=== PATIENT | female | born 1985 | race Two or more races ===

== ENCOUNTER → 2019-02-07 | Outpatient (REF) | payer OTHER ==
[2019-02-07 17:53] LABS: BLOOD UREA NITROGEN 16 MG/DL (7-18); CARBON DIOXIDE LEVEL 26 MEQ/L (21-32); CHLORIDE LEVEL 105 MEQ/L (98-107); GLOMERULAR FILTRATION RATE > 60.0 (>60); GLUCOSE, FASTING 89 MG/DL (70-100); POTASSIUM SERUM 4.4 MEQ/L (3.5-5.1); SODIUM LEVEL 138 MEQ/L (136-145)
[2019-02-07 18:03] LABS: HEMATOCRIT 37.7 % (36.0-47.0); HEMOGLOBIN 12.2 g/dl (12.0-15.5)
[2019-02-07 19:04] LABS: HEMOGLOBIN A1c 6.1 %
== END ==
LOC: M SFHCLERA 14:01
PROVIDERS: ATTEND Family Medicine
DX: E03.9 Hypothyroidism, unspecified (principal); Z13.1 Encounter for screening for diabetes mellitus

== ENCOUNTER → 2019-02-21 | Outpatient (CLI) | payer OTHER ==
--- NOTE | 2019-02-21 10:39 | PFTRPT ---
Height: 66.50 Inches Weight: 180.00 Lbs BSA: 1.92 Diagnosis: J45.909 DATE OF PROCEDURE: 02/21/2019 ORDERED BY: Dr. Rock Shankar Spirometry: Pre and post bronchodilator study of excellent technical quality. Difficulty with effort is identified. Forced vital capacity normal. FEV1 in proportion. Obstructive index is, therefore, normal. Flow volume loop: Expiratory limb of the flow volume loop is normal. No significant bronchodilator response identified. Lung volumes: Total lung capacity normal. Residual volume borderline for air trapping. Diffusing capacity: Diffusing capacity normal. Hemoglobin: No hemoglobin available for correction. Airway mechanics: Airway resistance and conductance are normal. IMPRESSION: Probably normal study. MTDD
== END ==
LOC: M CARPUL 09:56
PROVIDERS: ATTEND Family Medicine
DX: J45.909 Unspecified asthma, uncomplicated (principal)

== ENCOUNTER → 2019-05-22 | Outpatient (CLI) | payer OTHER ==
[~2019-05-22] MED LIST: METHACHOLINE KIT (J7674) INH ONE
--- NOTE | 2019-05-22 10:48 | REP ---
Clinical: Cough . Comparison: None . Technique: PA and lateral. Findings: The mediastinum and cardiac silhouette are normal. The lung joaquin are clear and without acute consolidation, effusion, or pneumothorax. The skeletal structures are intact and normal. Impression: 1. No acute cardiopulmonary process. Electronically Signed by Jose L Ramos MD 05/22/2019 10:40 A
== END ==
LOC: M CARPUL 09:42
PROVIDERS: ATTEND Physician Assistant
DX: R05 Cough (principal)

== ENCOUNTER → 2019-06-14 | Outpatient (CLI) | payer OTHER ==
--- NOTE | 2019-06-14 10:45 | PFTRPT ---
Height: 66.50 Inches Weight: 180.00 Lbs BSA: 1.92 Diagnosis: R05 DATE OF PROCEDURE: 06/14/2019 ORDERED BY: Jose L Wisdom PA-C INTERPRETATION: Study of excellent technical quality. Study somewhat limited by cough. Under protocol, methacholine was administered. At a dose of 2.5 mg or 13.875 CDUs, a 21% decline in the FEV1 was noted. PC of 1.90 was significant. Flow rates did return to baseline post bronchodilator administration. IMPRESSION: Positive methacholine challenge study. MTDD
== END ==
LOC: M CARPUL 09:40
PROVIDERS: ATTEND Physician Assistant
DX: R05 Cough (principal); Z88.2 Allergy status to sulfonamides
CPT/HCPCS: 94070; J7674

== ENCOUNTER → 2019-12-25 | Outpatient (REF) | payer OTHER ==
[2019-12-25 13:41] LABS: HEMOGLOBIN 13.8 g/dl (12.0-15.5); MEAN CORPUSCULAR HEMOGLOBIN 29.7 pg (27.0-33.0); MEAN CORPUSCULAR HGB CONC 32.1 g/dl (32.0-36.5); MEAN CORPUSCULAR VOLUME 92.5 fl (80.0-96.0); PLATELET COUNT, AUTOMATED 381 10^3/uL (150-450); RED BLOOD COUNT 4.65 10^6/uL (4.00-5.40); WHITE BLOOD COUNT 17.2 10^3/uL (4.0-10.0)
[2019-12-25 15:50] LABS: CHLAMYDIA DNA AMPLIFICATION NEGATIVE (NEGATIVE); GC DNA AMPLIFICATION NEGATIVE (NEGATIVE)
[2019-12-26 09:16] LABS: HEPATITIS C VIRUS ABY INDEX 0.1 INDEX (<0.8); HIV 1&2 SCREEN CENTAUR NEGATIVE (NEGATIVE)
== END ==
LOC: M PLALAB 10:54
PROVIDERS: ATTEND Advanced Practice Midwife
DX: O09.523 Supervision of elderly multigravida, third trimester (principal)

== ENCOUNTER 2020-07-17 05:00 | Inpatient (IN) | payer OTHER ==
[2020-07-17] VITALS (8 sets, daily range): BP systolic 115–142; BP diastolic 62–88
[~2020-07-17] VITALS: Ht 170.2 cm; Wt 94.8 kg
[~2020-07-17 05:00] MED LIST changes: +ADV500INH INH; +CETI10CH PO; +FLUT15.819; -METHACHOLINE KIT (J7674) INH ONE; +MONT10TA10 PO; +OMEP1CAP73 PO; +ONDA-83 PO; +PRENTAB53 PO; +PROAAER10 INH; +SYNT100T PO
--- OUTSIDE RECORDS SUMMARY | 2020-07-17 05:06 | CCD | Continuity of Care Document ---
Author Author Gavi WEN D.O. [place] [address] Phone [phone] Care Team Providers Care Dietary Internship Name Role Phone Bette Mota N.P. Unavailable Problems Active Problems Provider Date Gastroesophageal reflux disease Davide Wen D.O. Onset: 1 Allergic rhinitis Davide Wen D.O. Onset: 04/14/2020 Mild intermittent asthma HEATHER Paz Onset: 07/17/19 20 Difficulty breathing HEATHER Paz Onset: 05/08/2019 Cough HEATHER Paz Onset: 05/08/2019 Social History Type Date Description Comments Sex Unknown Tobacco Use Reviewed: 03/07/20 Patient has never smoked Smoking Status Reviewed: 07/03/20 Patient has never smoked Allergies, Adverse Reactions, Alerts Active Allergies Reaction Severity Comments Date Sulfa 05/08/2019 Medications Active Medications SIG Qnty Indications Ordering Provide r Date Fluticasone Propionate 50mcg/Act Suspension instill 2 sprays in each nostril daily 16gm J45.20 Sandra Wen D.O. 04/14/2020 Advair Diskus 500-50mcg/Dose Aeros ol 1 puff twice a day 60units Davide Wen D.O. 07/17/2019 Synthroid 100mcg Tablets 1 by mouth every day Unknown Cetirizine HCL 1 tab by mouth every day Unknown Montelukast Sodium 10mg Tablets 1 tab by mouth every day Unknown Albuterol Sulfate HFA 108(90Base) mcg/Act Aerosol inhale two puffs by mouth four times a day as needed Unknown Omeprazole 20mg Capsules DR 1 by mouth every day 30caps Unknown Vitamin Tablets 1 tab by mouth every day 1bottle Unknown Vitamin B-6 1 tab by mouth every day Unknown Immunizations CPT Code Status Date Vaccine Lot # 55077 Given 07/03/2020 Afluria, Quadrivalent, 0.5ml , [facility]# 48904-028-68 [id number] Vital Signs Date Vital Result Comment 07/03/2020 11:14am BP Systolic 118 mmHg BP Diastolic 70 mmHg Heart Rate 98 /min O2 % BldC Oximetry 100 % Body Temperature 96.7 F Height 66 inches 5'6" Weight 208.25 lb BMI (Body Mass Index) 33.6 kg/m2 [place] Body Weight 130 lb Weight 94.462 kg BSA (Body Surface Area) 2.03 m2 04/14/2020 9:49am BP Systolic 130 mmHg BP Diastolic 70 mmHg Heart Rate 97 /min O2 % BldC Oximetry 99 % Body Temperature 97.1 F Height 66 inches 5'6" Weight 204.00 lb BMI (Body Mass Index) 32.9 kg/m2 [place] Body Weight 130 lb Weight 92.534 kg BSA (Body Surface Area) 2.02 m2 Results Test Acquired Date Facility Test Result H/L Range Note FVL/Angel 07/03/2020 [facility] PD[facility]eport SEE IMAGE FVC-Pred 3.99 L FVC-Pre 3.07 L FVC-%Pred-Pre 77 L FVC-LLN 3.25 L Fev1-Pred 3.28 L Fev1-Pre 2.60 L Fev1-%Pred-Pre 79 L Fev1-LLN 2.66 L Fev6-Pred 3.93 L Fev6-Pre 3.07 L Fev6-%Pred-Pre 78 L Fev6-LLN 3.20 L Gjq1ook-Ybcn 83 % Mjf7omz-Vaw 85 % Qbz3xvk-%Pred-Pre 101 % Gel2mce-VCE 73 % Qee5qnx-Hxoh 99 % Ibg5ypo-Tfd 100 % Vzv1fin-%Pred-Pre 101 % FEFMax-Pred 7.32 L/E/sec FEFMax-Pre 6.08 L/E/sec FEFMax-%Pred-Pre 83 L/E/sec FEFMax-LLN 5.49 L/E/sec Ufm9261-Amrl 3.38 L/E/sec New3767-Sug 3.34 L/E/sec Vai5026-%Pred-Pre 98 L/E/sec Sip1306-HOP 2.07 L/E/sec ExpTime-Pre 4.64 sec Ced1rox2-Cwvy 84 % Woo2gbs3-Snb 85 % Qzf1ojx6-%Pred-Pre 100 % Jmm5rio1-OMF 76 % FVL/Angel 04/14/2020 [facility] PDFReport SEE IMAGE FVC-Pred 3.99 L FVC-Pre 3.06 L FVC-%Pred-Pre 76 L FVC-LLN 3.25 L Fev1-Pred 3.28 L Fev1-Pre 2.66 L Fev1-%Pred-Pre 81 L Fev1-LLN 2.66 L Fev6-Pred 3.93 L Fev6-Pre 3.06 L Fev6-%Pred-Pre 77 L Fev6-LLN 3.20 L Bdl1teq-Vhaj 83 % Ncm8teu-Bei 87 % Cqa8urw-%Pred-Pre 104 % Sbo7pin-NIT 73 % Weo4rbm-Ucrp 99 % Bzk2wwy-Ihr 100 % Thx1cbr-%Pred-Pre 101 % FEFMax-Pred 7.32 L/E/sec FEFMax-Pre 7.53 L/E/sec FEFMax-%Pred-Pre 102 L/E/sec FEFMax-LLN 5.49 L/E/sec Tmj7785-Rvzp 3.38 L/E/sec Hny0788-Gmu 2.86 L/E/sec Duc5301-%Pred-Pre 84 L/E/sec Jzr9599-PTC 2.07 L/E/sec ExpTime-Pre 2.36 sec Yoi2bxi1-Wviy 84 % Esu1aoc2-Oti 87 % Fjv3gtm8-%Pred-Pre 103 % Vme7prl1-MZA 76 % FVL/[place] 03/07/2020 [facility] PDFReport SEE IMAGE FVC-Pred 3.99 L FVC-Pre 3.04 L FVC-%Pred-Pre 76 L FVC-LLN 3.25 L Fev1-Pred 3.28 L Fev1-Pre 2.61 L Fev1-%Pred-Pre 79 L Fev1-LLN 2.66 L Fev6-Pred 3.93 L Fev6-Pre 3.04 L Fev6-%Pred-Pre 77 L Fev6-LLN 3.20 L Gzb1jav-Facy 83 % Rag8xcs-Ktq 86 % Cip1ywa-%Pred-Pre 103 % Lor6ddl-PZY 73 % Tux2hgb-Wyfn 99 % Yzs2lox-Rzv 100 % Dau3bme-%Pred-Pre 101 % FEFMax-Pred 7.32 L/E/sec FEFMax-Pre 6.76 L/E/sec FEFMax-%Pred-Pre 92 L/E/sec FEFMax-LLN 5.49 L/E/sec Fxx8230-Zmdi 3.38 L/E/sec Rsj4107-Wkp 2.54 L/E/sec Goh7036-%Pred-Pre 75 L/E/sec Vdg7703-QUC 2.07 L/E/sec ExpTime-Pre 3.25 sec Nlu6rdk4-Tdjb 84 % Wkc7ius3-Elo 86 % Vmu7yog4-%Pred-Pre 101 % Jvm8khh8-KTR 76 % Procedures Date Code Description Status 04/14/2020 47099 Spirometry Completed 03/07/2020 18806 Spirometry Completed Medical Devices Description No Information Available Encounters Type Date Location Provider Dx Diagnosis Office Visit 04/14/2020 10:00a [facility] Davide fraga D.O. J45.20 Mild intermittent asthma, uncomplicated J30.9 Allergic rhinitis, unspecifi ed K21.9 Gastro-esophageal reflux dis ease without esophagitis Office Visit 03/07/2020 11:00a [facility] HEATHER Paz J45.21 Mild intermittent asthma with (acute) ex acerbation J45.20 Mild intermittent asthma, un complicated J30.9 Allergic rhinitis, unspecifi ed Assessments Date Code Description Provider 07/03/2020 J45.20 Mild intermittent asthma, uncomp licated HEATHER Paz 04/14/2020 J45.20 Mild intermittent asthma, uncomp licated Davide Wen D.O. 04/14/2020 J30.9 Allergic rhinitis, unspecified R orleticia Wen D.O. 04/14/2020 K21.9 Gastro-esophageal reflux disease without esophagitis Davide Wen D.O. 03/07/2020 J45.21 Mild intermittent asthma with (a cute) exacerbation HEATHER Paz 03/07/2020 J45.20 Mild intermittent asthma, uncomp licated HEATHER Paz 03/07/2020 J30.9 Allergic rhinitis, unspecified M HEATHER Handley Plan of Treatment 07/03/2020 - HEATHER Paz* J45.20 Mild intermittent asthma, uncomplicated * * New Labs:* FVL/Angel, Ordered: 07/03/20 * Follow up:* Follow up in 3-4 months with angel Functional Status Description No Information Available Mental Status Description No Information Available Referrals Refer to Reason for Referral Status Appt Date Khalif Wisdom, R.P.A.-C. [id number] DX Asthma Created [facility] [address] [place], [place] [address] [phone] Khalif Wisdom, R.P.A.-C. [id number] DX Asthma Created [facility] [address] [place], [place] [address] [phone]
--- OUTSIDE RECORDS SUMMARY | 2020-07-17 05:06 | CCD ---
Author Author [facility] Organization [facility] Address Unknown Phone Unavailable Care Team Providers Care Information Security Consultant Name Role Phone MARK, M DENY PA Unavailable Unavailable MARK, M DENY PA Unavailable Unavailable MARK, M DENY PA Unavailable Unavailable MARK, M DENY PA Unavailable Unavailable MARK, M DENY PA Unavailable Unavailable MARK, M DENY PA Unavailable Unavailable MARK, M DENY PA Unavailable Unavailable MARK, M DENY PA Unavailable Unavailable MARK, M DENY PA Unavailable Unavailable MARK, M DENY PA Unavailable Unavailable MARK, M DENY PA Unavailable Unavailable MARK, M DENY PA Unavailable Unavailable MARK, M DENY PA Unavailable Unavailable MARK, M DENY PA Unavailable Unavailable MARK, M DENY PA Unavailable Unavailable MARK, M DENY PA Unavailable Unavailable MARK, M DENY PA Unavailable Unavailable MARK, M DENY PA Unavailable Unavailable MARK, M DENY PA Unavailable Unavailable MARK, M DENY PA Unavailable Unavailable MARK, M DENY PA Unavailable Unavailable MARK, M DENY PA Unavailable Unavailable MARK, M DENY PA Unavailable Unavailable MARK, M DENY PA Unavailable Unavailable MARK, M DENY PA Unavailable Unavailable MARK, M DENY PA Unavailable Unavailable MARK, M DENY PA Unavailable Unavailable MARK, M DENY PA Unavailable Unavailable MARK, M DENY PA Unavailable Unavailable MARK, M DENY PA Unavailable Unavailable MARK, M DENY PA Unavailable Unavailable MARK, M DENY PA Unavailable Unavailable MARK, M DENY PA Unavailable Unavailable SEARS, A FRANC DO Unavailable Unavailable SEARS, A FRANC DO Unavailable Unavailable SEARS, A FRANC DO Unavailable Unavailable SEARS, A FRANC DO Unavailable Unavailable SEARS, A FRANC DO Unavailable Unavailable SEARS, A FRANC DO Unavailable Unavailable SEARS, A FRANC DO Unavailable Unavailable SEARS, A FRANC DO Unavailable Unavailable SEARS, A FRANC DO Unavailable Unavailable SEARS, A FRNAC DO Unavailable Unavailable SEARS, A FRANC DO Unavailable Unavailable SEARS, A FRANC DO Unavailable Unavailable SEARS, A FRANC DO Unavailable Unavailable SEARS, A FRANC DO Unavailable Unavailable SEARS, A FRANC DO Unavailable Unavailable SEARS, A FRANC DO Unavailable Unavailable SEARS, A FRANC DO Unavailable Unavailable SEARS, A FRANC DO Unavailable Unavailable SEARS, A FRANC DO Unavailable Unavailable SEARS, A FRANC DO Unavailable Unavailable SEARS, A FRANC DO Unavailable Unavailable SEARS, A FRANC DO Unavailable Unavailable SEARS, A FRANC DO Unavailable Unavailable SEARS, A FRANC DO Unavailable Unavailable SEARS, A FRANC DO Unavailable Unavailable SEARS, A FRANC DO Unavailable Unavailable SEARS, A FRANC DO Unavailable Unavailable SEARS, A FRANC DO Unavailable Unavailable SEARS, A FRANC DO Unavailable Unavailable SEARS, A FRANC DO Unavailable Unavailable SEARS, A FRANC DO Unavailable Unavailable SEARS, A FRANC DO Unavailable Unavailable SEARS, A FRANC DO Unavailable Unavailable SEARS, A FRANC DO Unavailable Unavailable SEARS, A FRANC DO Unavailable Unavailable SEARS, A FRANC DO Unavailable Unavailable SEARS, A FRANC DO Unavailable Unavailable SEARS, A FRANC DO Unavailable Unavailable SEARS, A FRANC DO Unavailable Unavailable SEARS, A FRANC DO Unavailable Unavailable SEARS, A FRANC DO Unavailable Unavailable SEARS, A FRANC DO Unavailable Unavailable SEARS, A FRANC DO Unavailable Unavailable SEARS, A FRANC DO Unavailable Unavailable SEARS, A FRANC DO Unavailable Unavailable Re-disclosure Warning The records that you are about to access may contain information from federally-assisted alcohol or drug abuse programs. If such information is present, then the following federally mandated warning applies: This information has been disclosed to you from records protected by federal confidentiality rules (42 CFR part 2). The federal rules prohibit you from making any further disclosure of this information unless further disclosure is expressly permitted by the written consent of the person to whom it pertains or as otherwise permitted by 42 CFR part 2. A general authorization for the release of medical or other information is NOT sufficient for this purpose. The Federal rules restrict any use of the information to criminally investigate or prosecute any alcohol or drug abuse patient.The records that you are about to access may contain highly sensitive health information, the redisclosure of which is protected by Article 27-F of the [facility] Public Health law. If you continue you may have access to information: Regarding HIV / AIDS; Provided by facilities licensed or operated by the [facility] Office of Mental Health; or Provided by the [facility] Office for People With Developmental Disabilities. If such information is present, then the following [facility] mandated warning applies: This information has been disclosed to you from confidential records which are protected by state law. State law prohibits you from making any further disclosure of this information without the specific written consent of the person to whom it pertains, or as otherwise permitted by law. Any unauthorized further disclosure in violation of state law may result in a fine or senior living sentence or both. A general authorization for the release of medical or other information is NOT sufficient authorization for further disc losure. Allergies and Adverse Reactions Type Description Substance Reaction Status Data Source(s ) Sulfa (for allergy use only) Sulfa (for allergy use only) De Leon lfa (for allergy use only) Unknown Active eCW1 ([facility]) Sulfa (for allergy use only) Sulfa (for allergy use only) De Leon lfa (for allergy use only) Unknown Active eCW1 ([facility]) Encounters Encounter Providers Location Date Indications Data Source(s ) Outpatient Attender: FRANC Dean/Dahlia/Santino/Reindl 04/14/2020 10:00:00 AM EDT MED[facility] ([facility]) Outpatient Attender: DENY Davis/Hempstead/Santino/Rein dl 03/07/2020 11:00:00 AM EDT MED[facility] ([facility]) [facility] [place] [address] [facility] [address] 02/19/2020 12:00:00 AM EDT eCW1 ([facility]) Unknown [address] [facility] [place] [address] 01/10/2020 12:00:00 AM EDT eCW1 ([facility]) Outpatient Attender: DENY Davis/Hempstead/Santino/Rein dl 12/26/2019 09:30:00 AM EDT MEDENT ([facility]) ([facility]) Rupinder New OB Visit [address] [place] [address] 12/25/2019 12:00:00 AM EDT eCW1 ([facility]) [facility] [place] [address] [facility] [place] [address] 10/15/2019 12:00:00 AM EDT eCW1 ([facility]) [facility] [address] [facility] [place] [address] 08/21/2019 12:00:00 AM EST eCW1 ([facility]) [facility] [address] [facility] [place] [address] 08/14/2019 12:00:00 AM EST eCW1 ([facility]) [facility] [address] [facility] [place] [address] 08/07/2019 12:00:00 AM EST eCW1 ([facility]) Outpatient Attender: DENY Davis/Hempstead/Santino/Rein dl 07/17/2019 09:00:00 AM EST MEDENT ([facility]) [facility] [address] [facility] [place] [address] 07/17/2019 12:00:00 AM EST eCW1 ([facility]) [facility] [address] [place] [address] [place] [address] 07/12/2019 12:00:00 AM EST eCW1 ([facility]) [facility] [address] [place] [address] Y [address] 07/10/2019 12:00:00 AM EST eCW1 ([facility]) [facility] [address] [place] [address] [place] [address] 05/21/2019 12:00:00 AM EST eCW1 ([facility]) Immunizations Vaccine Date Status Description Data Source(s) New in 2011. IIV4 07/03/2020 10:53:00 AM EST completed [facility] ([facility] ) Medications Medication Brand Name Start Date Product Form Dose Route Admi nistrative Instructions Pharmacy Instructions Status Indications Reaction Description Data Source(s) Fluticasone Propionate Fluticasone Propionate 04/14/2020 12:00:00 AM E DT active MED[facility] ([facility], ) Fluconazole 150 MG Oral Tablet [Diflucan] Diflucan 150 MG Di flucan 150 MG 08/21/2019 12:00:00 AM EST 1.0 {tablet} suspended Diflucan 150 MG eCW1 ([facility]) Fluconazole 150 MG Oral Tablet [Diflucan] Diflucan 150 MG Di flucan 150 MG 08/21/2019 12:00:00 AM EST active 1 tablet eCW1 ([facility]) 60 ACTUAT Fluticasone propionate 0.5 MG/ ACTUAT / salmeterol 0.05 MG/ACTUAT Dry Powder Inhaler [Advair] Advair Diskus 07/17/2019 12:00:00 AM EST RESPIRATORY active MEDENT ([facility], ) Insurance Providers Payer name Policy type / Coverage type Policy ID Covered libertarian ID Covered libertarian's relationship to collado Policy Collado Plan Information [facility] [id number] [facility] [id number] [facility] [id number] [facility] [id number] ANSI-Not a Secondary Insurance [id number] ANSI-Not a Secondary Insurance [id number] Problems, Conditions, and Diagnoses Code Display Name Description Problem Type Effective Dates Data Source(s) 95456779 Allergic rhinitis Allergic rhinitis Problem 04/14/2020 12:00:00 AM EDT MED[facility] ([facility] ) 751061241 Gastroesophageal reflux disease Gastroesophageal reflux disease Problem 04/14/2020 12:00:00 AM EDT MEDENT ([facility] ) Z34.80 care Supervision of other normal P belkis 12/25/2019 12:00:00 AM EDT eCW1 ([facility]) [id number] Mild intermittent asthma Mild intermittent asthma Prob ben 07/17/2019 12:00:00 AM EST MEDENT ([facility]) Surgeries/Procedures Procedure Description Date Indications Data Source(s) Spirometry 04/14/2020 12:00:00 AM EDT M EDENT ([facility], ) Spirometry 03/07/2020 12:00:00 AM EDT M EDENT ([facility]) Spirometry 12/26/2019 12:00:00 AM EDT EDENT ([facility]) Results ID Date Data Source [id number] 07/03/2020 11:09:00 AM EST MEDENT ([facility]) Name Value Range Interpretation Code Description Data Maribell rce(s) Supporting Document(s) PDFReport Laboratory test result MEDENT ([facility]) FVC-Pred 3.99 L MEDENT ([facility]) FVC-Pre 3.07 L MEDENT ([facility]) FVC-%Pred-Pre 77 L MEDENT ([facility]) FVC-LLN 3.25 L MEDENT ([facility]) Fev1-Pre 2.60 L MED[facility] ([facility]) Fev1-%Pred-Pre 79 L MEDENT ([facility]) Fev1-Pred 3.28 L MEDENT ([facility]) Fev6-%Pred-Pre 78 L MEDENT ([facility]) Fev6-Pred 3.93 L MEDENT ([facility]) Fev6-Pre 3.07 L MED[facility] ([facility]) Fev1-LLN 2.66 L MED[facility] ([facility]) Fev6-LLN 3.20 L MED[facility] ([facility]) Dbv9bkx-Ckjp 83 % MEDENT ([facility]) Zyb4urm-Het 85 % MED[facility] ([facility]) Wlx6ugh-%Pred-Pre 101 % MEDENT ([facility]) Ish5lgi-Qywc 99 % MED[facility] ([facility]) Mqj4ffc-MUK 73 % MED[facility] ([facility]) Alt1clk-Vlx 100 % MED[facility] ([facility]) FEFMax-Pred 7.32 L/E/sec MEDENT ([facility]) Dpu2lha-%Pred-Pre 101 % MED[facility] ([facility]) FEFMax-Pre 6.08 L/E/sec MEDENT ([facility]) FEFMax-%Pred-Pre 83 L/E/sec MEDENT ([facility]) FEFMax-LLN 5.49 L/E/sec MEDENT ([facility]) Zix4025-Cuy 3.34 L/E/sec MEDENT ([facility]) Hhl4498-%Pred-Pre 98 L/E/sec MEDENT ([facility]) Ggz8122-Kmdr 3.38 L/E/sec MEDENT ([facility]) ExpTime-Pre 4.64 sec MEDENT ([facility]) Hxc9702-LSQ 2.07 L/E/sec MEDENT ([facility]) Tla3hta8-QAT 76 % [facility] ([facility]) Leg4pjx4-Asei 84 % MED[facility] ([facility]) Rnu1zap8-Sos 85 % MED[facility] ([facility]) Iai1tmy4-%Pred-Pre 100 % MED[facility] ([facility]) ID Date Data Source [id number] 04/14/2020 09:48:00 AM EDT MEDENT ([facility]) Name Value Range Interpretation Code Description Data Maribell rce(s) Supporting Document(s) FVC-Pred 3.99 L MEDENT ([facility], ) PDFReport Laboratory test result MED[facility] ([facility] ) FVC-Pre 3.06 L MEDENT ([facility], ) FVC-LLN 3.25 L MEDENT ([facility]) FVC-%Pred-Pre 76 L MEDENT ([facility], ) Fev1-Pred 3.28 L MEDENT ([facility], ) Fev1-Pre 2.66 L MED[facility] ([facility]) Fev1-LLN 2.66 L MED[facility] ([facility]) Fev1-%Pred-Pre 81 L MEDENT ([facility]) Fev6-Pre 3.06 L MED[facility] ([facility]) Fev6-Pred 3.93 L MED[facility] ([facility]) Fev6-%Pred-Pre 77 L MEDENT ([facility], ) Fev6-LLN 3.20 L MEDENT ([facility]) Kpj7wau-Qrev 83 % [facility] ([facility]) Ghk0hsq-Pfo 87 % [facility] ([facility]) Eyr4bln-%Pred-Pre 104 % MED[facility] ([facility]) Zyl6dtw-TWE 73 % [facility] ([facility]) Ong0ufv-Vzud 99 % [facility] ([facility]) Brf4val-Jht 100 % [facility] ([facility]) Eam6bfu-%Pred-Pre 101 % [facility] ([facility]) FEFMax-Pred 7.32 L/E/sec MEDENT ([facility]) FEFMax-%Pred-Pre 102 L/E/sec MEDENT ([facility]) FEFMax-Pre 7.53 L/E/sec MEDENT ([facility], ) Fue6924-Etqm 3.38 L/E/sec MEDENT ([facility]) Ybt2272-Idd 2.86 L/E/sec MED[facility] ([facility]) FEFMax-LLN 5.49 L/E/sec MEDENT ([facility]) Sio0820-HEE 2.07 L/E/sec MEDENT ([facility]) Ozq8522-%Pred-Pre 84 L/E/sec MEDENT ([facility]) ExpTime-Pre 2.36 sec MEDENT ([facility]) Ncw9txw9-%Pred-Pre 103 % MED[facility] ([facility]) Oyk8xsy2-Czax 84 % MEDENT ([facility]) Prj3pcu5-Krl 87 % [facility] ([facility]) Hdl1xhj2-QDH 76 % MED[facility] ([facility]) ID Date Data Source [id number] 03/07/2020 11:02:00 AM EDT MEDENT ([facility]) Name Value Range Interpretation Code Description Data Maribell rce(s) Supporting Document(s) FVC-Pred 3.99 L MEDENT ([facility]) PDFReport Laboratory test result MEDENT ([facility]) FVC-Pre 3.04 L MEDENT ([facility]) FVC-LLN 3.25 L MED[facility] ([facility]) FVC-%Pred-Pre 76 L MEDENT ([facility]) Fev1-Pre 2.61 L MED[facility] ([facility]) Fev1-%Pred-Pre 79 L MEDENT ([facility]) Fev1-Pred 3.28 L MED[facility] ([facility]) Fev6-Pre 3.04 L MED[facility] ([facility]) Fev1-LLN 2.66 L MED[facility] ([facility]) Fev6-Pred 3.93 L MED[facility] ([facility]) Fev6-%Pred-Pre 77 L MEDENT ([facility]) Xux0vld-Xxmf 83 % [facility] ([facility] ) Fev6-LLN 3.20 L MEDENT ([facility], ) Opu3nax-%Pred-Pre 103 % MEDENT ([facility]) Gsr7nxm-GEB 73 % [facility] ([facility]) Jci1kiv-Bfy 86 % [facility] ([facility]) Zfi6xvo-Crfc 99 % [facility] ([facility]) Gxq7iav-%Pred-Pre 101 % MED[facility] ([facility]) Kjp8ppc-Oht 100 % [facility] ([facility]) FEFMax-Pred 7.32 L/E/sec MEDENT ([facility]) FEFMax-Pre 6.76 L/E/sec MEDENT ([facility]) FEFMax-%Pred-Pre 92 L/E/sec MED[facility] ([facility]) Emh8873-Fop 2.54 L/E/sec MED[facility] ([facility]) FEFMax-LLN 5.49 L/E/sec MEDENT ([facility]) Ltf2951-Yxmh 3.38 L/E/sec MEDENT ([facility]) Vwr3043-%Pred-Pre 75 L/E/sec MEDENT ([facility]) ExpTime-Pre 3.25 sec MEDENT ([facility]) Uwp8158-XDG 2.07 L/E/sec MEDENT ([facility]) Hgy5zfs4-%Pred-Pre 101 % MED[facility] ([facility]) Mvd4uqa6-Wrj 86 % MED[facility] ([facility]) Yat0ojz5-Kpos 84 % MEDENT ([facility]) Gih3vtu9-NNC 76 % MEDENT ([facility]) ID Date Data Source HBSAG 12/26/2019 11:36:52 AM EDT [facility] Name Value Range Interpretation Code Description Data Maribell rce(s) Supporting Document(s) NEGATIVE eCW1 ([facility]) ID Date Data Source HEPATITIS C ANTIBODY INDEX 12/26/2019 11:36:49 AM EDT eCW1 ( [facility]) Name Value Range Interpretation Code Description Data Maribell rce(s) Supporting Document(s) 0.1 eCW1 ([facility]) ID Date Data Source RUBELLA IMMUNE STATUS IgG 12/26/2019 11:36:46 AM EDT eCW1 ([facility]) Name Value Range Interpretation Code Description Data Maribell rce(s) Supporting Document(s) IMMUNE eCW1 ([facility]) ID Date Data Source SYPHILIS ANTIBODY (RPR SCREEN) 12/26/2019 11:36:42 AM EDT eC W1 ([facility]) Name Value Range Interpretation Code Description Data Maribell rce(s) Supporting Document(s) NONREACTIVE eCW1 ([facility]) ID Date Data Source [id number] 12/26/2019 11:36:37 AM EDT eCW[facility] Name Value Range Interpretation Code Description Data Maribell rce(s) Supporting Document(s) eCW1 ([facility]) ID Date Data Source URINE CULTURE 12/26/2019 09:44:51 AM EDT eCW1 [facility] Name Value Range Interpretation Code Description Data Maribell rce(s) Supporting Document(s) eCW1 ([facility]) ID Date Data Source [id number] 12/26/2019 09:27:00 AM EDT MEDENT ([facility], ) Name Value Range Interpretation Code Description Data Maribell rce(s) Supporting Document(s) PDFReport Laboratory test result MEDENT ([facility] ) FVC-Pred 3.99 L MEDENT ([facility], ) FVC-Pre 3.10 L MEDENT ([facility]) FVC-LLN 3.25 L MEDENT ([facility], ) FVC-%Pred-Pre 77 L MEDENT ([facility], ) Fev1-Pred 3.28 L MEDENT ([facility], ) Fev1-LLN 2.66 L MEDENT ([facility], ) Fev1-%Pred-Pre 77 L MEDENT ([facility], ) Fev1-Pre 2.55 L MEDENT ([facility]) Fev6-Pred 3.93 L MEDENT ([facility], ) Fev6-Pre 3.10 L MEDENT ([facility], ) Fev6-LLN 3.20 L MEDENT ([facility], ) Fev6-%Pred-Pre 78 L MEDENT ([facility], ) Pdy3cox-Jvwr 83 % MED[facility] ([facility]) Lsg5gqy-Qxy 82 % [facility] ([facility]) Lud3iwe-%Pred-Pre 98 % MED[facility] ([facility], ) Yer5kwe-Lxoc 99 % [facility] ([facility]) Qor5bwg-HCV 73 % [facility] ([facility]) Cfh6brc-Cfd 100 % [facility] ([facility]) Yrw4wbx-%Pred-Pre 101 % MED[facility] ([facility]) FEFMax-Pre 7.05 L/E/sec MEDENT ([facility]) FEFMax-Pred 7.32 L/E/sec MEDENT ([facility], ) FEFMax-%Pred-Pre 96 L/E/sec MED[facility] ([facility]) Cyn3677-Mkza 3.38 L/E/sec MED[facility] ([facility]) FEFMax-LLN 5.49 L/E/sec MED[facility] ([facility]) Gdp8709-Kzp 2.53 L/E/sec MED[facility] ([facility]) Rjd4842-%Pred-Pre 74 L/E/sec MEDENT ([facility]) Igm9813-MWT 2.07 L/E/sec MED[facility] ([facility]) Xkl6bbm8-Bfxb 84 % MED[facility] ([facility]) ExpTime-Pre 3.59 sec MED[facility] ([facility]) Bnc0trj4-Ayo 82 % [facility] ([facility]) Xle1cmt8-%Pred-Pre 97 % MED[facility] ([facility]) Gbi9fna7-OCV 76 % MED[facility] ([facility]) ID Date Data Source Type and Screen Prenatal1 12/25/2019 05:47:46 AM EDT eCW1 ([facility]) Name Value Range Interpretation Code Description Data Maribell rce(s) Supporting Document(s) NEGATIVE eCW1 ([facility]) ID Date Data Source CHLAMYDIA & GC DNA AMPLIFICAT 12/25/2019 05:47:42 AM EDT eCW 1 ([facility]) Name Value Range Interpretation Code Description Data Maribell rce(s) Supporting Document(s) Chlamydia trachomatis rRNA [Presence] in Unspecified specimen by Probe and target amplification method NEGATIVE eCW1 ([facility]) ID Date Data Source CBC - Complete Blood Count 12/25/2019 05:47:37 AM EDT eCW1 ( [facility]) Name Value Range Interpretation Code Description Data Maribell rce(s) Supporting Document(s) 17.2 eCW1 ([facility]) 4.65 eCW1 ([facility]) 13.8 eCW1 ([facility]) 43.0 eCW1 ([facility]) 29.7 eCW1 ([facility]) 92.5 eCW1 ([facility]) 32.1 eCW1 ([facility]) 381 eCW1 ([facility]) 13.8 eCW1 ([facility]) Procedure Social History Code Duration Value Status Description Data Source(s ) Smoking 07/03/2020 12:00:00 AM EST Patient has never smoked co mpleted Patient has never smoked MEDENT ([facility]) Smoking 01/14/2020 12:00:00 AM EDT Never Smoker completed Never S moker eCW1 ([facility]) Smoking 12/25/2019 12:00:00 AM EDT Never Smoker completed Never S moker eCW1 ([facility]) Vital Signs ID Date Data Source UNK Name Value Range Interpretation Code Description Data Source(s) Body surface area Derived from formula 2.03 m2 2.03 m2 [facility] ([facility]) Body weight 94.462 kg 94.462 kg [facility] ([facility]) [place] body weight 130 [lb_av] 130 [lb_av] [facility] ([facility]) Body mass index (BMI) [Ratio] 33.6 kg/m2 33.6 k g/m2 [facility] ([facility]) Body weight 208.25 [lb_av] 208.25 [lb_av] [facility] T ([facility]) Body height 66 [in_i] 66 [in_i] [facility] ([facility]) 5'6" Body temperature 96.7 [degF] 96.7 [degF] [facility] ([facility]) Oxygen saturation in Arterial blood by Pulse oximetry 100 % 100 % [facility] ([facility]) Heart rate 98 /min 98 /min [facility] ([facility]) Diastolic blood pressure 70 mm[Hg] 70 mm[Hg] [facility] ([facility]) Systolic blood pressure 118 mm[Hg] 118 mm[Hg] M [facility] ([facility]) Body surface area Derived from formula 2.02 m2 2.02 m2 [facility] ([facility]) Body weight 92.534 kg 92.534 kg [facility] ([facility]) [place] body weight 130 [lb_av] 130 [lb_av] [facility] ([facility]) Body mass index (BMI) [Ratio] 32.9 kg/m2 32.9 k g/m2 [facility] ([facility]) Body weight 204.00 [lb_av] 204.00 [lb_av] [facility] T ([facility]) Body height 66 [in_i] 66 [in_i] [facility] ([facility]) 5'6" Body temperature 97.1 [degF] 97.1 [degF] [facility] ([facility]) Oxygen saturation in Arterial blood by Pulse oximetry 99 % 99 % [facility] ([facility]) Heart rate 97 /min 97 /min [facility] ([facility]) Diastolic blood pressure 70 mm[Hg] 70 mm[Hg] [facility] ([facility]) Systolic blood pressure 130 mm[Hg] 130 mm[Hg] [facility] ([facility]) Body weight 89.813 kg 89.813 kg [facility] ([facility]) [place] body weight 130 [lb_av] 130 [lb_av] [facility] ([facility]) Body mass index (BMI) [Ratio] 32.0 kg/m2 32.0 k g/m2 [facility] ([facility]) Body weight 198.00 [lb_av] 198.00 [lb_av] [facility] T ([facility]) Body height 66 [in_i] 66 [in_i] [facility] ([facility]) 5'6" Body temperature 97.7 [degF] 97.7 [degF] [facility] ([facility]) Oxygen saturation in Arterial blood by Pulse oximetry 100 % 100 % [facility] ([facility]) Heart rate 99 /min 99 /min [facility] ([facility]) Diastolic blood pressure 72 mm[Hg] 72 mm[Hg] [facility] ([facility]) Systolic blood pressure 122 mm[Hg] 122 mm[Hg] [facility] ([facility]) Body weight 85.957 kg 85.957 kg [facility] ([facility]) Body mass index (BMI) [Ratio] 30.6 kg/m2 30.6 k g/m2 [facility] ([facility]) Body weight 189.50 [lb_av] 189.50 [lb_av] [facility] ([facility]) Body height 66 [in_i] 66 [in_i] [facility] ([facility], ) 5'6" Body temperature 98.3 [degF] 98.3 [degF] [facility] ([facility] ) Oxygen saturation in Arterial blood by Pulse oximetry 100 % 100 % [facility] ([facility]) Heart rate 101 /min 101 /min [facility] ([facility], ) Diastolic blood pressure 80 mm[Hg] 80 mm[Hg] [facility] ([facility]) Systolic blood pressure 118 mm[Hg] 118 mm[Hg] [facility] ([facility]) Diastolic blood pressure 86 mm[Hg] 86 mm[Hg] eCW1 ([facility]) Systolic blood pressure 134 mm[Hg] 134 mm[Hg] e CW1 ([facility]) Body mass index (BMI) [Ratio] 29.445 kg/m2 29.4 45 kg/m2 eCW1 ([facility]) Body height 67 [in_i] 67 [in_i] eCW1 ([facility]) Body weight 188 [lb_av] 188 [lb_av] eCW1 ([facility]) Diastolic blood pressure 96 mm[Hg] 96 mm[Hg] eCW1 ([facility]) Systolic blood pressure 162 mm[Hg] 162 mm[Hg] e CW1 ([facility]) Body temperature 97.7 [degF] 97.7 [degF] eCW1 ( [facility]) Respiratory rate 18 /min 18 /min eCW1 ([facility]) Heart rate 87 /min 87 /min eCW1 ([facility]) Body mass index (BMI) [Ratio] 31.95 kg/m2 31.95 kg/m2 W1 ([facility]) Body height 66 [in_us] 66 [in_us] eCW1 ([facility] hospital) Body weight Measured 198 [lb_av] 198 [lb_av] eC W1 ([facility]) Body weight 90.720 kg 90.720 kg [facility] ([facility], ) Body mass index (BMI) [Ratio] 32.3 kg/m2 32.3 k g/m2 [facility] ([facility]) Body weight 200.00 [lb_av] 200.00 [lb_av] [facility] ([facility] ) Body height 66 [in_i] 66 [in_i] [facility] ([facility]) 5'6" Oxygen saturation in Arterial blood by Pulse oximetry 99 % 99 % [facility] ([facility]) Heart rate 87 /min 87 /min [facility] ([facility]) Diastolic blood pressure 80 mm[Hg] 80 mm[Hg] [facility] ([facility]) Systolic blood pressure 120 mm[Hg] 120 mm[Hg] [facility] ([facility]) Diastolic blood pressure 89 mm[Hg] 89 mm[Hg] eCW1 ([facility]) Systolic blood pressure 137 mm[Hg] 137 mm[Hg] e CW1 ([facility]) Body temperature 97.9 [degF] 97.9 [degF] eCW1 ( [facility]) Respiratory rate 18 /min 18 /min eCW1 ([facility]) Heart rate 71 /min 71 /min eCW1 ([facility]) Body mass index (BMI) [Ratio] 30.50 kg/m2 30.50 kg/m2 eCW1 ([facility]) Body height 66 [in_us] 66 [in_us] eCW1 ([facility] hospital) Body weight Measured 189 [lb_av] 189 [lb_av] eC W1 ([facility]) Patient Treatment Plan of Care Planned Activity Planned Date Details Description Data Source (s) Fluconazole 150 MG Oral Tablet [Diflucan] 08/21/2019 12:00:00 AM ES T eCW1 ([facility])
[2020-07-17] MEDS ORDERED: BICITRA 30ML SOLN UDC As Ordered ONE (05:26)
[2020-07-17] MEDS ORDERED: ceFAZolin 2 GM/D5W 50 ML IV BAG (J0690 PER 500MG) As Ordered ONE (05:26)
[2020-07-17] MEDS ORDERED: BICITRA 30ML SOLN UDC PO ONE (05:30)
[2020-07-17] MEDS ORDERED: ceFAZolin SOD 2 GM in IV 1 EA IV ONE (05:30)
[2020-07-17] MEDS ORDERED: KETOROLAC 60MG 2ML VIAL As Ordered ONE (07:17)
[2020-07-17] MEDS ORDERED: OXYTOCIN INJ 10 UNITS/ML VIAL (J2590) As Ordered ONE (07:17)
[2020-07-17] MEDS ORDERED: ONDANSETRON 4MG/2ML VIAL As Ordered ONE (07:17)
[2020-07-17] MEDS ORDERED: dexameTHASONE 4 MG/ML 1ML VIAL (J1100 PER 1MG) As Ordered ONE (07:17)
[2020-07-17] MEDS ORDERED: fentaNYL 100 MCG/2 ML INJECTION (J3010) As Ordered ONE (07:18)
[2020-07-17] MEDS ORDERED: MORPHINE PRES-FREE INJ 10 MG/10 ML VIAL (J2274) As Ordered ONE (07:19)
[2020-07-17] MEDS ORDERED: BUPIVACAINE HCL 0.25% 10ML VIAL SC ONE (07:45)
--- NOTE | 2020-07-17 08:01 | HPEPDOC ---
Obstetrical History & Physical General Date of Admission Jul 17, 2020 at 05:00 History of Present Illness 34yo at 39+0 by 1T scan per patient but records not available from [facility], this SANTHOSH was consistent with 21+4wk scan. She presents today for RCD/BS. Today she denied n/v/d, cp, sob, kay, visual changes, abd pain, f/c, vb, lof, decreased fm, contractions. APC 1. history of CD for acute asthma attack, satisfied parity (desires salpingectomy) 2. hypothyroidism - on synthroid 100mcg/d (was on 100/112mcg/d alternating pre- , will continue on 100mcg/d and recheck in 6wk) 3. moderate persistent asthma - on zyrtic, advair, albuterol, montelukast, sees pulmonology, has had q4wk GS for poorly controlled asthma (now improved control) 4. cervical polyp from 9-12 o clock 5. no record of pap but patient reports recent and normal 6. 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 Past Medical History Medical History moderate persistent asthma, hypothyroidism, GERD, migraines Surgical History: section Family History Significant Family History: No pertinent family hx Social History Marital Status: Family situation: Spouse/partner home Psychosocial History: No pertinent psych hx * Smoker: non-smoker Alcohol: rarely Drugs: denies Imunizations Tdap status: current Influenza Status: needs Allergies Coded Allergies: Sulfa (Sulfonamide Antibiotics) (Verified Allergy, Severe, lip, face and tongue swelling, 07/17/20) Medications Scheduled Cetirizine HCl (Cetirizine HCl) 10 Mg Tab.chew, 10 MG PO DAILY Fluticasone Propionate (Fluticasone Propionate) 15.8 Ml [place].susp, 50 MCG NA DAILY Levothyroxine Sodium (Synthroid) 100 Mcg Tablet, 100 MCG PO DAILY Montelukast Sodium (Montelukast Sodium) 10 Mg Tablet, 10 MG PO QHS Omeprazole (Omeprazole) 20 Mg Capsule.dr, 20 MG PO DAILY Vit,Calc76/Iron/Folic (Prenatabs Rx Tablet) 1 Each Tablet, 1 TAB PO DAILY Salmeterol/Fluticasone (Advair 500-50 Diskus) 1 Each Blst.w.dev, 1 PUFF INH BID Scheduled PRN Albuterol Sulfate (Proair Hfa) 8.5 Gm Hfa.aer.ad, 2 PUFF INH PRN PRN for SOB/WHEEZING Ondansetron HCl (Ondansetron HCl) 4 Mg Tablet, 4 MG PO Q4H PRN for NAUSEA OR VOMITING Physical Examination Physical Examination GENERAL: Alert and oriented times three. BREAST: . ABDOMEN: Gravid and non-tender to touch. FETUS: fetus is vertex (VTX) by Javi. HEART RATE: Regular rate and rhythm. LUNGS: Clear to auscultation (CTA). EXTREMITIES: No edema. No clonus. Vital Signs/I&O Vital Signs Date Time Temp Pulse Resp B/P (MAP) Pulse Ox O2 Delivery O2 Flow Rate FiO2 07/17/20 06:09 97.4 94 18 141/84 (103) Room Air Laboratory Data 24H LABS Laboratory Tests 2 07/17/20 04:49: Serology Scanned Report Hepatitis B Testing 07/17/20 05:20: Coronavirus (COVID-19)(PCR) NEGATIVE Urine Culture: No Growth Pertinent Laboratoy Data Blood Type: A+ RBC Antibody Screen: Negative HIV: Negative Hepatitis B: Negative Rapid Plasma Reagin: Nonreactive Rubella: Immune Varicella: Immune Chlamydia/Gonorrhea: Negative Group B Streptococcus: Negative Quad Screen Test: Declined Cystic Fibrosis: Negative Glucose Tolerance Test: 118 Anatomy Ultrasound Placenta Location: Posterior Normal Anatomy: Yes Estimated Weight (grams): 3700 Assessment/Plan Assessment 34yo at 39+0 by 1T scan per patient but records not available from [facility], this SANTHOSH was consistent with 21+4wk scan. She presents today for RCD/BS. APC 1. history of CD for acute asthma attack, satisfied parity (desires salpingectomy) 2. hypothyroidism - on synthroid 100mcg/d (was on 100/112mcg/d alternating pre- , will continue on 100mcg/d and recheck in 6wk) 3. moderate persistent asthma - on zyrtic, advair, albuterol, montelukast, sees pulmonology, has had q4wk GS for poorly controlled asthma (now improved control) 4. cervical polyp from 9-12 o clock 5. no record of pap but patient reports recent and normal 6. 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
[2020-07-17] MEDS ORDERED: NALOXONE INJ 0.4MG/1ML VIAL (J2310 PER 1MG) IV PRN ×2 (08:02)
[2020-07-17] MEDS ORDERED: diphenhydrAMINE 50MG/ML VIAL (J1200) IV PRN ×2 (08:02→10:00)
[2020-07-17] MEDS ORDERED: METOCLOPRAMIDE INJ 10MG/2ML VIAL (J2765 PER 1) IV PRN (08:02)
[2020-07-17] MEDS ORDERED: NALBUPHINE HCL 10 MG/ML AMP (J2300) IV PRN (08:02)
[2020-07-17] MEDS ORDERED: ONDANSETRON 4MG/2ML VIAL IV PRN ×2 (08:02→10:00)
[2020-07-17] MEDS ORDERED: PHENYLephrine 500MCG 5ML (100MCG/ML) SYRINGE As Ordered ONE (08:13)
[2020-07-17] MEDS ORDERED: METOCLOPRAMIDE INJ 10MG/2ML VIAL (J2765 PER 1) As Ordered ONE (08:58)
[2020-07-17] MEDS ORDERED: diphenhydrAMINE 50MG/ML VIAL (J1200) As Ordered ONE (09:28)
[2020-07-17] MEDS ORDERED: OXYTOCIN DRIP 30 UNITS in IV 1 EA IV SCH ×4 (09:41)
[2020-07-17] MEDS ORDERED: oxyCODONE 5MG TAB PO PRN ×2 (09:45→10:00)
[2020-07-17] MEDS ORDERED: ACETAMINOPHEN TAB 650MG DOSE (2X325MG) PO PRN (09:45)
[2020-07-17] MEDS ORDERED: MOM 30ML SUSPENSION UDC PO PRN (09:45)
[2020-07-17 09:46] LABS: CORD GAS HCO3 V 24.1 MEQ/L; CORD GAS O2 SAT V 59.4 %; CORD GAS PCO2 V 57.1 mmHg; CORD GAS PH V 7.244 UNITS; CORD GAS PO2 V 27.4 mmHg; CORD GAS SBC V 20.3 MEQ/L; CORD GAS TCO2 V 25.9 MEQ/L
[2020-07-17] MEDS ORDERED: ALBUTEROL 90 MCG/ACT 8GM HFA INHALER INH PRN (10:00)
[2020-07-17] MEDS ORDERED: fentaNYL 100 MCG/2 ML INJECTION (J3010) IV PRN (10:00)
[2020-07-17] MEDS ORDERED: CETIRIZINE (ZyrTEC) 10 MG TAB PO ONE (10:00)
[2020-07-17] MEDS ORDERED: OMEPRAZOLE 20 MG CAP PO ONE (10:00)
[2020-07-17] MEDS ORDERED: MEPERIDINE INJ 25 MG/ML VIAL (J2175) IV PRN (10:00)
[2020-07-17] MEDS ORDERED: HYDROMORPHONE HCL 0.5 MG/ 0.5 ML SYRINGE (J1170 PER 1) IV PRN (10:00)
--- NOTE | 2020-07-17 10:03 | ROOPDOC ---
[facility] Report Of Operation Report of Operation DATE OF PROCEDURE: 07/17/20 PREPROCEDURE DIAGNOSES: history of section, satisfied parity POSTPROCEDURE DIAGNOSES: history of section, satisfied parity PROCEDURE: repeat delivery, bilateral salpingectomy SURGEON: Dr. Kayleigh FAUTSIN CARE MANAGEMENT ASSISTANT: Dr. Afsaneh FAUSTIN ANESTHESIA: epidural ESTIMATED BLOOD LOSS: Approximately 500 mL. COMPLICATIONS: none REMARKS: none PROCEDURE NOTE: The risks, benefits, and alternatives of the procedure were discussed and written consent was obtained. A final time out was performed. An epidural was placed by anesthesia and the patient was positioned supine and a atkinson was placed in the bladder. A leftward tilt was achieved with a bump. The skin was prepped and draped in a sterile fashion. The anesthesia was tested to be adequate. A Pfannenstiel skin incision was then made with the scalpel and carried through to the underlying layer of fascia. The fascia was incised in the midline and the incision extended laterally with the curved Mccurdy scissors. The superior aspect of the fascial incision was then grasped with the Kyle clamps, elevated, and the underlying rectus muscles dissected off with a scapel and bluntly. Attention was then turned to the inferior aspect of this incision which, in a similar fashion, was grasped, tented up with Kocker clamps, and the rectus muscles dissected off with curved Mccurdy. The rectus muscles were then in the midline, and the peritoneum identified and entered bluntly. The peritoneal incision was then extended superiorly and laterally by manual traction with good visualization of the bladder. A bladder flap was created with the metzambum scissors. The lower uterine segment incised in a transverse fashion with the scalpel. The uterine incision was then bluntly extended superiorly with manual traction. The infants head delivered atraumatically followed by anterior shoulder, posterior shoulder and corpus without difficulty. The cord was clamped and cut and infant handed to awaiting pediatricians. Cord blood sent for gases. The placenta was then removed with gentle traction. The uterus was cleared of all clots and debris with a moist lap. The Uterus was exteriorized and the rehan rine incision was closed with 0-Monocyrl in a running locked fashion. A second imbricating layer was done also with 0-monocryl. Hemostasis of hysterotomy noted on re-examination x 2. The uterus, ovaries, and fallopian tubes were normal in appearance. The left fallopian tube had two subcentimeter simple paratubal cysts. A bilateral salpingectomy was performed by first identifying the fallopian tubes and confirming them by walking them to the fimbriated end. The mesosalpinx was transected with bovie cautery to exclude vessels >3mm which were individually tied off with plain gut suture and bovie cautery used to cauterize the vessel ends. The cornual ends were tied off and truncated with bovie cautery. The surgical sites remained hemostatic. The uterus was returned to the abdomen and the gutters were cleaned with moist laps. The hysterotomy and salpingectomy sites were again examined and found to be adequate. The muscles and peritoneum were examined and were hemostatic. The fascia was closed with 0-Vicryl in a running fashion. The subcutaneous tissue was hemostatic with the aid of bovie cautery. The subcutaneous tissue was closed with 2-0 vicryl and the skin was closed with 4-0 monocryl. The skin was then secured with dermabond. The patient tolerated the procedure well. Sponge, lap and needle counts were correct times two. The patient was taken to the recovery room in stable condition. DANNY GARCIA DO Jul 17, 2020 10:03
[2020-07-17] MEDS ORDERED: OXYTOCIN 30 UNITS IN 0.9% NaCl 500ML IV BAG (J2590) As Ordered ONE (10:16)
[2020-07-17 10:57] LABS: HEMATOCRIT 35.3 % (36.0-47.0); HEMOGLOBIN 11.6 g/dl (12.0-15.5); MEAN CORPUSCULAR HEMOGLOBIN 29.4 pg (27.0-33.0); MEAN CORPUSCULAR HGB CONC 32.9 g/dl (32.0-36.5); MEAN CORPUSCULAR VOLUME 89.4 fl (80.0-96.0); PLATELET COUNT, AUTOMATED 305 10^3/uL (150-450); RED BLOOD COUNT 3.95 10^6/uL (4.00-5.40); WHITE BLOOD COUNT 14.6 10^3/uL (4.0-10.0)
[2020-07-17] MEDS: IBUPROFEN 800 MG TAB PO SCH (19:30)
[2020-07-17] MEDS: DOCUSATE SODIUM 100MG CAPSULE PO SCH (21:00)
[2020-07-17] MEDS: ADVAIR HFA 115/21MCG INHALER INH SCH (21:45)
[2020-07-18] MEDS: oxyCODONE 5MG TAB PO PRN ×2 (00:40→23:27)
[2020-07-18 02:00] VITALS: BP 116/61
[2020-07-18] MEDS: IBUPROFEN 800 MG TAB PO SCH ×3 (02:00→18:41)
[2020-07-18 05:52] VITALS: BP 117/66
[2020-07-18] MEDS: LEVOTHYROXINE 100MCG TABLET (0.1MG) PO SCH (06:00)
--- NOTE | 2020-07-18 06:58 | IPNPDOC ---
Progress Note Date of Service: Jul 18, 2020 Day#: 1 Progress Note SUBJECT: 34yo PPD1 s/p RCD/BS at 39+0. She has been ambulating, voiding s pontaneously without issue and tolerating regular diet. Breast feeding without issue. Reports lochia is like a normal period. Patient is ambulating well. Reports some cramping with . Denies significant pain. Voiding and without difficulty. Has not yet passed flatus. APC 1. history of CD for acute asthma attack, satisfied parity (desires salpingectomy) 2. hypothyroidism - on synthroid 100mcg/d (was on 100/112mcg/d alternating pre- , will continue on 100mcg/d and recheck in 6wk) 3. moderate persistent asthma - on zyrtec, advair, albuterol, montelukast, sees pulmonology, has had q4wk GS for poorly controlled asthma (now improved control) 4. cervical polyp from 9-12 o clock 5. no record of pap but patient reports recent and normal 6. dating scan records missing in [facility] 7. isolated MR x2 on admission within approx 1h, normotensive since OBJECTIVE: VITAL SIGNS: Within normal limits, afebrile. Alert and oriented times three. no increased wob non-tachycardic Abdomen: Fundus firm at U-2. Soft. incision appropriately tender Pfannensteil incision is clean dry and well approx with dermabond [Minimal] lochia. per pt ASSESSMENT: 34yo PPD1 s/p RCD/BS at 39+0. Vitals within normal limits, afebrile, hemodynamically stable with no evidence of infection. PLAN: 1. Discharge to home likely tomorrow. 2. Tylenol and Motrin for pain. 3. Encourage breast feeding and ambulation. 4. continue on synthroid 100mcg/d will recheck TSH in 6wk 5. Routine PP visit in 6 weeks in clinic. 6. Discussed return precautions and post-surgical activity limitatoins at length. VS, I&O, 24H, Fishbone Vital Signs/I&O Vital Signs Date Time Temp Pulse Resp B/P (MAP) Pulse Ox O2 Delivery O2 Flow Rate FiO2 07/18/20 05:52 98.7 79 16 117/66 (83) 98 Room Air I&O- Last 24 Hours up to 6 AM 07/18/20 06:00 Intake Total 510 ml Output Total 2225 ml Balance -1715 ml Laboratory Data 24H LABS Laboratory Tests 2 07/17/20 09:27: Cord Venous Blood pH 7.244, Cord Venous Blood PCO2 57.1, Cord Venous Blood PO2 27.4, Cord Venous Blood HCO3 24.1, Cord Venous Blood Total CO2 25.9, Cord Venous Base Excess (Actual) -4.0, Cord Venous Base Excess (Standard) 20.3, Cord Venous Blood Oxygen Saturation 59.4 DANNY GARCIA DO Jul 18, 2020 06:58
[2020-07-18] MEDS: PRENATAL VITAMINS CHEWABLE TABLET PO SCH (07:59)
[2020-07-18] MEDS: DOCUSATE SODIUM 100MG CAPSULE PO SCH ×2 (07:59→20:10)
[2020-07-18] MEDS: ADVAIR HFA 115/21MCG INHALER INH SCH ×2 (08:00→20:10)
[2020-07-18] MEDS: FLUTICASONE PROP 0.05% NASAL SPRAY 16 GM (FLONASE) NARES SCH (08:01)
[2020-07-18] MEDS: ACETAMINOPHEN 500 MG TAB PO PRN ×3 (08:14→20:10)
[2020-07-18] MEDS: MONTELUKAST 10 MG TAB PO SCH (09:23)
[2020-07-18 10:00] VITALS: BP 127/76
[2020-07-18 14:00] VITALS: BP 137/72
[2020-07-18 18:00] VITALS: BP 125/86
[2020-07-18 22:00] VITALS: BP 124/82
[2020-07-19] MEDS: IBUPROFEN 800 MG TAB PO SCH ×2 (00:48→09:30)
[2020-07-19 02:00] VITALS: BP 139/83
[2020-07-19] MEDS: LEVOTHYROXINE 100MCG TABLET (0.1MG) PO SCH (05:31)
[2020-07-19 05:41] VITALS: BP 144/87
[2020-07-19] MEDS ORDERED: SIMETHICONE 80MG CHEW TAB PO PRN (05:45)
--- NOTE | 2020-07-19 07:36 | IPNPDOC ---
Progress Note Date of Service: Jul 19, 2020 Progress Note 34yo PPD2 s/p RCD/BS at 39+0. She has been ambulating, voiding spontaneously without issue and tolerating regular diet. Breast feeding without issue. Reports lochia is like a normal period. Patient is ambulating well. Reports some cramping with . Denies significant pain. Voiding and without difficulty. Has not yet passed flatus. APC 1. history of CD for acute asthma attack, satisfied parity (desires salpingectomy) 2. hypothyroidism - on synthroid 100mcg/d (was on 100/112mcg/d alternating pre- , will continue on 100mcg/d and recheck in 6wk) 3. moderate persistent asthma - on zyrtec, advair, albuterol, montelukast, sees pulmonology, has had q4wk GS for poorly controlled asthma (now improved control) 4. cervical polyp from 9-12 o clock 5. no record of pap but patient reports recent and normal 6. dating scan records missing in [facility] 7. isolated MR x2 on admission within approx 1h, normotensive since 8. Now meeting DX for GTHN- NO S/S of pre e OBJECTIVE: VITAL SIGNS: Within normal limits, afebrile. Alert and oriented times three. no increased wob non-tachycardic Abdomen: Fundus firm at U-2. Soft. incision appropriately tender Pfannensteil incision is clean dry and well approx with dermabond Minimal lochia. per pt ASSESSMENT: 34yo PPD2 s/p RCD/BS at 39+0. Vitals within normal limits, afebrile, hemodynamically stable with no evidence of infection. PLAN: 1. Discharge to home likely today 2. Tylenol and Motrin for pain- meds at home already 3. Encourage breast feeding and ambulation. 4. continue on synthroid 100mcg/d will recheck TSH in 6wk 5. Routine PP visit in 2 and 6 weeks in clinic. 6. Discussed return precautions and post-surgical activity limitatoins at length. VS, I&O, 24H, Fishbone Vital Signs/I&O Vital Signs Date Time Temp Pulse Resp B/P (MAP) Pulse Ox O2 Delivery O2 Flow Rate FiO2 07/19/20 05:41 97.9 87 18 144/87 (106) 07/18/20 23:27 Room Air 07/18/20 18:00 99 I&O- Last 24 Hours up to 6 AM 07/19/20 06:00 Intake Total 120 ml Balance 120 ml SARKIS BRANCH MD Jul 19, 2020 07:34
[2020-07-19] MEDS ORDERED: IBUP80TA PO (08:18)
[2020-07-19] MEDS ORDERED: ACET-683 PO (08:18)
[2020-07-19] MEDS ORDERED: DOK1CAP7 PO (08:18)
[2020-07-19] MEDS: ADVAIR HFA 115/21MCG INHALER INH SCH (09:29)
[2020-07-19] MEDS: DOCUSATE SODIUM 100MG CAPSULE PO SCH (09:30)
[2020-07-19] MEDS: FLUTICASONE PROP 0.05% NASAL SPRAY 16 GM (FLONASE) NARES SCH (09:30)
[2020-07-19] MEDS: PRENATAL VITAMINS CHEWABLE TABLET PO SCH (09:30)
[2020-07-19] MEDS: MONTELUKAST 10 MG TAB PO SCH (09:30)
--- NOTE | 2020-07-31 14:03 | DS.PDOC ---
Discharge Summary General Date of Admission Jul 17, 2020 at 05:00 Date of Discharge 2020 Discharge Summary 34yo PPD2 s/p RCD/BS at 39+0. She has been ambulating, voiding spontaneously without issue and tolerating regular diet. Breast feeding without issue. Reports lochia is like a normal period. Patient is ambulating well. Reports some cramping with . Denies significant pain. Voiding and without difficulty. Has not yet passed flatus. APC 1. history of CD for acute asthma attack, satisfied parity (desires salpingectom y) 2. hypothyroidism - on synthroid 100mcg/d (was on 100/112mcg/d alternating pre- , will continue on 100mcg/d and recheck in 6wk) 3. moderate persistent asthma - on zyrtec, advair, albuterol, montelukast, sees pulmonology, has had q4wk GS for poorly controlled asthma (now improved control) 4. cervical polyp from 9-12 o clock 5. no record of pap but patient reports recent and normal 6. dating scan records missing in [facility] 7. isolated MR x2 on admission within approx 1h, normotensive since 8. Now meeting DX for GTHN- NO S/S of pre e OBJECTIVE: VITAL SIGNS: Within normal limits, afebrile. Alert and oriented times three. no increased wob non-tachycardic Abdomen: Fundus firm at U-2. Soft. incision appropriately tender Pfannensteil incision is clean dry and well approx with dermabond Minimal lochia. per pt ASSESSMENT: 34yo PPD2 s/p RCD/BS at 39+0. Vitals within normal limits, afebrile, hemodynamically stable with no evidence of infection. PLAN: 1. Discharge to home likely today 2. Tylenol and Motrin for pain- meds at home already 3. Encourage breast feeding and ambulation. 4. continue on synthroid 100mcg/d will recheck TSH in 6wk 5. Routine PP visit in 2 and 6 weeks in clinic. 6. Discussed return precautions and post-surgical activity limitatoins at length. Discharge Medications Scheduled Cetirizine HCl (Cetirizine HCl) 10 Mg Tab.chew, 10 MG PO DAILY, (Reported) Docusate Sodium (Dok) 100 Mg Capsule, 100 MG PO BID Fluticasone Propionate (Fluticasone Propionate) 15.8 Ml [place].susp, 50 MCG NA DAILY, (Reported) Ibuprofen (Ibuprofen) 800 Mg Tablet, 800 MG PO Q8H Levothyroxine Sodium (Synthroid) 100 Mcg Tablet, 100 MCG PO DAILY, (Reported) Montelukast Sodium (Montelukast Sodium) 10 Mg Tablet, 10 MG PO QHS, (Reported) Omeprazole (Omeprazole) 20 Mg Capsule.dr, 20 MG PO DAILY, (Reported) Vit,Calc76/Iron/Folic (Prenatabs Rx Tablet) 1 Each Tablet, 1 TAB PO DAILY, (Reported) Salmeterol/Fluticasone (Advair 500-50 Diskus) 1 Each Blst.w.dev, 1 PUFF INH BID, (Reported) Scheduled PRN Acetaminophen (Acetaminophen) 500 Mg Tablet, 1,000 MG PO Q6HP PRN for PAIN LEVEL 6-10 Albuterol Sulfate (Proair Hfa) 8.5 Gm Hfa.aer.ad, 2 PUFF INH PRN PRN for SOB/WHEEZING, (Reported) Ondansetron HCl (Ondansetron HCl) 4 Mg Tablet, 4 MG PO Q4H PRN for NAUSEA OR VOMITING, (Reported) Allergies Coded Allergies: Sulfa (Sulfonamide Antibiotics) (Verified Allergy, Severe, lip, face and tongue swelling, 07/17/20) SARKIS BRANCH MD Jul 31, 2020 14:02
== END 2020-07-19 13:05 | disposition home or self-care (01) | DRG 785 ==
LOC: M LDI 05:00 → M OBS 11:08
PROVIDERS: ADMIT Obstetrics & Gynecology; ATTEND Obstetrics & Gynecology
PROC: 0UL70ZZ Occlusion of Bilateral Fallopian Tubes, Open Approach (ICD-10-PCS; 2020-07-17)
PROC: 10D00Z1 Extraction of Products of Conception, Low, Open Approach (ICD-10-PCS; principal; 2020-07-17 07:30)
DX: O34.211 Maternal care for low transverse scar from previous cesarean delivery (principal); Z37.0 Single live birth; Z3A.39 39 weeks gestation of pregnancy; O99.284 Endocrine, nutritional and metabolic diseases complicating childbirth; E03.9 Hypothyroidism, unspecified; O99.52 Diseases of the respiratory system complicating childbirth; J45.909 Unspecified asthma, uncomplicated; Z30.2 Encounter for sterilization

== ENCOUNTER → 2020-08-06 | Outpatient (CLI) | payer OTHER ==
[~2020-08-06] MED LIST changes: +ACET-683 PO; +DOK1CAP7 PO; +IBUP80TA PO
--- NOTE | 2020-08-06 13:21 | REP ---
INDICATION: 2 WEEKS S/P C SECTION , DISHWATER FLUID DISCHARGE COMPARISON: None. TECHNIQUE: Helical scanning is acquired in 4 mm axial images were reformatted. Coronal and sagittal MPR images were generated and reviewed. FINDINGS: Preliminary digital metal fabrication supervisor radiograph demonstrates an unremarkable bowel gas pattern. There is moderate colonic stool. There is minimal platelike atelectasis in the right lower lobe. The lung bases are otherwise clear. There is no evidence of pleural effusion or ascites. The liver is homogeneous in texture. Normal in size. Spleen is normal in size and homogeneous in texture as well. Normal adrenal glands are seen. Gallbladder is unremarkable. No abnormality is noted in the pancreas. There is no evidence hydronephrosis on either side. No intrarenal calculus is seen. Small and large bowel loops are unremarkable in the upper abdomen. Moderate stool as on metal fabrication supervisor image. uterine enlargement is observed as expected. Uterus measures 10 point 9 x 6.8 by 9.7 cm. No ovarian mass lesion is seen. A normal appendix is visible just above the right ovary. There are postoperative changes in the anterior abdominal wall in the configuration of a fan steal incision. No hematoma or abdominal wall defect is seen. No abnormality noted in the perineum. IMPRESSION: uterine enlargement and postoperative changes in the lower anterior abdominal wall. Otherwise negative CT study abdomen and pelvis. No acute abnormality. <Electronically signed by Richi Hamilton > 08/06/20 [id number]
== END ==
LOC: M RAD 12:50
PROVIDERS: ATTEND Obstetrics & Gynecology
DX: Z48.89 Encounter for other specified surgical aftercare (principal)

== ENCOUNTER → 2021-06-25 | Outpatient (CLI) | payer OTHER ==
[~2021-06-25] MED LIST changes: +DOK1CAP4 PO; -DOK1CAP7 PO
--- NOTE | 2021-06-25 11:21 | REP ---
INDICATION: LEFT FOOT TOE PAIN COMPARISON: None. TECHNIQUE: Four views left 3rd through 5th toes. FINDINGS: There is no evidence of acute fracture, dislocation, or intrinsic bone disease. IMPRESSION: No fracture or dislocation. <Electronically signed by Andrew Mays > 06/25/21 [id number]
== END ==
LOC: M RAD 10:53
PROVIDERS: ATTEND Physician Assistant
DX: M25.572 Pain in left ankle and joints of left foot (principal)